=== PATIENT | female | born 1935 | race Caucasian/White ===

== ENCOUNTER → 2017-09-29 09:44 | Outpatient (CLI) | payer MEDICARE, OTHER, SELFPAY ==
[2017-09-29 10:26] LABS: Carbon Dioxide 30 mmol/L (22-32); Chloride 100 mmol/L (98-107); HEMOLYSIS < 15 (0-50); Sodium 140 mmol/L (137-145)
== END ==
PROVIDERS: PCP Family Medicine; Visit Provider Specialist
DX: R89.2 Abnormal level of other drugs, medicaments and biological substances in specimens from other organs, systems and tissues (principal)
CPT/HCPCS: 36415; 80051

== ENCOUNTER → 2017-10-07 10:47 | Outpatient (CLI) | payer MEDICARE, OTHER, SELFPAY ==
[2017-10-07 11:55] LABS: Add Manual Diff / Slide Review NO; Basophils Percent Auto 0.8 % (0-2); Eosinophils Percent Auto 1.2 % (2-4); Hematocrit 39.9 % (36-46); Hemoglobin 13.6 g/dL (12.0-16.0); Lymphocytes Percent Auto 24.3 % (25-40); Mean Corpuscular Hemoglobin 29.1 PG (26-34); Mean Corpuscular Volume 85.8 fL (80-100); Monocytes Percent Auto 7.8 % (3-14); Neutrophils Absolute Auto 4100 /uL (3000-5900); Neutrophils Percent Auto 65.9 % (50-75); Platelet Count 343 X10^3/uL (150-400); Red Blood Cell Count 4.66 X10^6/uL (4.0-5.2); Red Cell Distribution Width 14.3 % (11.6-14.8); White Blood Cell Count 6.3 X10^3/uL (4.5-11.0)
[2017-10-07 12:35] LABS: Alanine Aminotransferase 31 IU/L (9-52); Albumin 4.6 g/dL (3.5-5.0); Albumin Globulin Ratio 1.5 (1.0-2.8); Alkaline Phosphatase 109 U/L (38-126); Aspartate Aminotransferase 30 IU/L (14-36); Bilirubin Total 0.6 mg/dL (0.2-1.3); Blood Urea Nitrogen 22 mg/dL (7-17); Calcium 10.1 mg/dL (8.4-10.2); Carbon Dioxide 33 mmol/L (22-32); Chloride 98 mmol/L (98-107); Cholesterol 225 mg/dL (140-199); Estimated Glomerular Filt Rate 53.5 mL/min (>60); Globulin 3.1 g/dL (1.7-4.1); Glucose 95 mg/dL (80-110); HDL Cholesterol 44 mg/dL (40-60); HEMOLYSIS < 15 (0-50); LDL Cholesterol Calculated 148 mg/dL (<100); Potassium 4.4 mmol/L (3.4-5.1); Sodium 141 mmol/L (137-145); Total Protein 7.7 g/dL (6.3-8.2); Triglycerides 166 mg/dL (35-150)
[2017-10-07 12:39] LABS: Free T4, Direct Thyroxine 1.36 ng/dL (0.78-2.19)
== END ==
PROVIDERS: Family Provider Family Medicine; PCP Family Medicine; Visit Provider Family Medicine
DX: I10 Essential (primary) hypertension (principal); E03.9 Hypothyroidism, unspecified; E78.5 Hyperlipidemia, unspecified
CPT/HCPCS: 36415; 80053; 80061; 84439; 84443; 85025

== ENCOUNTER 2018-05-25 14:03 | Emergency (ER) | payer MEDICARE, OTHER, SELFPAY ==
[2018-05-25 14:10] VITALS: BP 165/73; PULSE 81; RESP 13; TEMP 36.6; O2SAT 98; BMI 35.8
--- NOTE | 2018-05-25 14:17 | DI.RAD.S_ITS ---
PROCEDURE: XR CHEST 1V INDICATIONS: chest pain TECHNIQUE: One view of the chest was acquired. COMPARISON: None. FINDINGS: Surgical changes and devices: None. Lungs and pleura: Lungs are clear. No pleural effusions or pneumothorax. Mediastinum: Mediastinal contours appear normal. Heart size is normal. Bones and chest wall: No suspicious bony lesions. Overlying soft tissues appear unremarkable. IMPRESSION: No acute process. Dictated by: Diana Barraza M.D. on 05/25/2018 at 14:42 Approved by: Diana Barraza M.D. on 05/25/2018 at 14:43
[2018-05-25 14:35] VITALS: BP 146/66; PULSE 79; RESP 13; O2SAT 95
--- NOTE | 2018-05-25 14:41 | ED.CHESTPAIN ---
HPI - Chest Pain <NICOLA Davies - Last Filed: 05/25/18 21:43> General Chief Complaint: Chest Pain Stated Complaint: Abnormal EKG, sent by walk in Time Seen by Provider: 05/25/18 14:15 Source: patient Mode of arrival: ambulatory Limitations: no limitations History of Present Illness HPI narrative: 83-year-old female with history of hypertension that is a nonsmoker here for complaint of having left flank pain over the past several days. She reports she has issue of having flank pain on and off over the past couple of years. She reports that she has been seen for this multiple times and had multiple imaging that has been negative. She says normally treated with muscle relaxers and Idyllwild. She was trying to get prescription of Idyllwild at the walk-in clinic. EKG was completed at the walk-in clinic that showed questionable findings with possible ST depression and T-wave inversions no prior EKG was available she to evaluate. She denies any chest pain. No shortness of breath. No nausea vomiting. She denies having any history of any cardiac history. She denies any trauma to the flank area. No urinary symptoms. She is ambulatory in the emergency room. No loss of bladder or bowel control. Related Data Home Medications Medication Instructions Recorded Confirmed hydrocodone 5 mg-acetaminophen 300 0.5 - 1 tab PO Q6H PRN 09/29/17 05/25/18 mg tablet Fish Oil 1 cap PO DAILY 05/25/18 05/25/18 amitriptyline 25 mg PO BEDTIME 05/25/18 05/25/18 ascorbic acid (vitamin C) 1,000 mg PO DAILY 05/25/18 05/25/18 [id number] 1 tab PO PRN PRN 05/25/18 05/25/18 [Excedrin Migraine] cyclobenzaprine 2.5 - 10 mg PO PRN PRN 05/25/18 05/25/18 ferrous sulfate [iron] 65 mg PO 2XW 05/25/18 05/25/18 levothyroxine 88 mcg PO DAILY 05/25/18 05/25/18 pantoprazole 20 mg PO DAILY 05/25/18 05/25/18 Previous Rx's Medication Instructions Recorded triamterene 37.5 1 cap PO DAILY #90 cap 09/29/17 mg-hydrochlorothiazide 25 mg capsule calcium carbonate 200 mg calcium 200 mg PO BID #180 tab 10/07/17 (500 mg) chewable tablet cholecalciferol (vitamin D3) 2,000 2,000 unit PO DAILY #90 cap 10/07/17 unit capsule verapamil ER 240 mg 24 hr 240 mg PO BID #180 cap 05/22/18 capsule,extended release hydrocodone-acetaminophen [Idyllwild] 1 tab PO Q6H PRN #10 tab 05/25/18 Allergies Allergy/AdvReac Type Severity Reaction Status Date / Time zonisamide [ZONISAMIDE] Allergy Unknown rash Verified 05/25/18 14:13 Review of Systems <NICOLA Davies - Last Filed: 05/25/18 21:43> Constitutional Denies chills, Denies fever(s), Denies lethargy and Denies weakness ENT Ears, Nose, Mouth, and Throat: Denies change in voice, Denies neck pain and Denies sore throat Cardiovascular Denies chest pain, Denies irregular heart rhythm, Denies lightheadedness, Denies palpitations, Denies dyspnea, Denies dyspnea on exertion and Denies orthopnea Respiratory Denies cough, Denies dyspnea, Denies dyspnea on exertion and Denies wheezing Gastrointestinal Gastrointestinal: Denies abdominal pain, Denies change in bowel habits, Denies diarrhea, Denies nausea and Denies vomiting Genitourinary Denies hematuria, Denies flank pain, Denies urinary incontinence and Denies urinary urgency Musculoskeletal Denies neck pain Comments: Left back/left flank area. Integumentary/Breasts Denies pruritus, Denies erythema, Denies rash and Denies wounds Neurologic Denies confusion and Denies weakness Psychiatric Denies anxiety, Denies confusion, Denies depression, Denies homicidal ideation and Denies suicidal ideation Endocrine Denies palpitations Hematologic/Lymphatic Denies easy bruising Allergic/Immunologic Denies wheezing PFSH <NICOLA Davies - Last Filed: 05/25/18 21:43> Medical History GERD (gastroesophageal reflux disease) (Chronic) Lower extremity edema (Chronic) Migraines (Chronic) Hypothyroidism (acquired) (Chronic) Essential hypertension (Chronic ~2007) Rheumatoid arthritis (Acute ~1997) Cataracts, bilateral (Chronic 2015) Chronic back pain (Chronic 2002) Hearing loss (Chronic 2015) Lumbar disc disease (Chronic 2002) Stress incontinence of urine (Chronic 2017) Vertigo (Chronic 2012) Anemia (Resolved) Foot pain (Resolved) Rheumatic fever (Resolved) Surgical History S/P hysterectomy (Chronic 1987) S/P appendectomy (Chronic 1966) Family History Father Heart disease Stroke Mother Cancer Brother Cancer Sister Alzheimer's disease Sister No problems noted. Social History Smoking Status: Never smoker alcohol intake: never Social History Smoking Status: Never smoker alcohol intake: never Exam <NICOLA Davies - Last Filed: 05/25/18 21:43> Initial Vital Signs Initial Vital Signs: Vital Signs Temperature 97.9 F 05/25/18 14:10 Pulse Rate 81 05/25/18 14:10 Respiratory Rate 13 05/25/18 14:10 Blood Pressure 165/73 H 05/25/18 14:10 Pulse Oximetry 98 05/25/18 14:10 Const General: cooperative and well developed Nutritional Appearance: well nourished Orientation: alert, awake, oriented x3 and not confused [facility] Mouth: oral mucosae normal and moist mucous membranes Eyes Conjunctivae: conjunctivae normal Sclera: sclerae normal Pupils: PERRL EOM: EOM intact bilaterally Resp Effort & Inspection: normal respiratory effort, able to speak in complete sentences, no respiratory distress and no use of accessory muscles Auscultation: clear to auscultation bilaterally, no rales, no rhonchi and no wheezes Cardio Rate: regular rate Rhythm: regular rhythm Heart Sounds: no click, no gallops, no murmurs and no rubs Pulses: normal peripheral pulses GI Inspection: non-distended Palpation: soft, no hepatosplenomegaly, No guarding, No pulsatile mass and No tender Auscultation: normal bowel sounds General: No CVA tenderness Back/Spine/Pelvis Other: Tenderness to the left flank area and to left thoracic paraspinals on palpation. No CVA tenderness. Skin General: no rashes or lesions noted, No jaundice and No petechiae Neuro General: alert, oriented x3, gait normal and no focal motor deficits Speech: speech normal <Aravind Andrew DO - Last Filed: 05/26/18 20:21> Initial Vital Signs Initial Vital Signs: Vital Signs Temperature 97.9 F 05/25/18 14:10 Pulse Rate 81 05/25/18 14:10 Respiratory Rate 13 05/25/18 14:10 Blood Pressure 165/73 H 05/25/18 14:10 Pulse Oximetry 98 05/25/18 14:10 Course <NICOLA Davies - Last Filed: 05/25/18 21:43> Orders Ordered: Discontinued Medications Sodium Chloride (Normal Saline 0.9%) 1,000 mls @ 150 mls/hr IV CONT LEONIDES Last Infusion: 05/25/18 16:38 Dose: 150 mls/hr Admin: 05/25/18 15:00 Dose: 150 mls/hr Vital Signs - 8 hr 05/25/18 14:10 05/25/18 14:35 05/25/18 16:23 Temperature 97.9 F Pulse Rate 81 79 80 Respiratory Rate 13 13 21 Blood Pressure 165/73 H Blood Pressure [Left Arm] 146/66 H 129/86 Pulse Oximetry 98 95 95 <Aravind Andrew DO - Last Filed: 05/26/18 20:21> Orders Ordered: Discontinued Medications Sodium Chloride (Normal Saline 0.9%) 1,000 mls @ 150 mls/hr IV CONT LEONIDES Last Infusion: 05/25/18 16:38 Dose: 150 mls/hr Admin: 05/25/18 15:00 Dose: 150 mls/hr Vital Signs - 8 hr 05/25/18 14:10 05/25/18 14:35 05/25/18 16:23 Temperature 97.9 F Pulse Rate 81 79 80 Respiratory Rate 13 13 21 Blood Pressure 165/73 H Blood Pressure [Left Arm] 146/66 H 129/86 Pulse Oximetry 98 95 95 MDM - Chest Pain <NICOLA Davies - Last Filed: 05/25/18 21:43> Lab Data Result diagrams: 05/25/18 14:41 05/25/18 14:41 Lab Results 05/25/18 05/25/18 05/25/18 Range/Units 14:41 14:41 14:41 WBC 7.3 (4.5-11.0) X10^3/uL RBC 4.79 (4.0-5.2) X10^6/uL Hgb 13.7 (12.0-16.0) g/dL Hct 41.6 (36-46) % MCV 86.8 (80-100) fL MCH 28.7 (26-34) PG MCHC 33.0 (30-36) % RDW 14.0 (11.6-14.8) % Plt Count 307 (150-400) X10^3/uL Neut % (Auto) 65.0 (50-75) % Lymph % (Auto) 25.1 (25-40) % Morrill % (Auto) 7.5 (3-14) % Eos % (Auto) 1.3 L (2-4) % Baso % (Auto) 1.1 (0-2) % Neut # (Auto) 4800 (8591-4021) /uL Lymph # (Auto) 1800 (0761-7088) /uL Morrill # (Auto) 500 (0-900) /uL Eos # (Auto) 100 (0-450) /uL Baso # (Auto) 100 (0-100) /uL PT 11.2 (10.1-12.7) SECONDS INR 1.0 (0.9-1.3) APTT 33 (26.4-36.2) SECONDS Sodium 139 (137-145) mmol/L Potassium 3.6 (3.4-5.1) mmol/L Chloride 100 (98-107) mmol/L Carbon Dioxide 27 (22-32) mmol/L BUN 26 H (7-17) mg/dL Creatinine 0.90 (0.52-1.04) mg/dL Estimated GFR > 60.0 (>60) mL/min BUN/Creatinine Ratio 28.9 H (6-22) Glucose 88 (80-110) mg/dL Calcium 10.0 (8.4-10.2) mg/dL Total Bilirubin 0.4 (0.2-1.3) mg/dL AST 33 (14-36) IU/L ALT 37 (9-52) IU/L Alkaline Phosphatase 95 (38-126) U/L Total Creatine Kinase 82 (30-135) U/L CK-MB (CK-2) TNP CK-MB (CK-2) Rel Index TNP Troponin I < 0.012 (0.01-0.034) ng/mL Total Protein 8.0 (6.3-8.2) g/dL Albumin 4.8 (3.5-5.0) g/dL Globulin 3.2 (1.7-4.1) g/dL Albumin/Globulin Ratio 1.5 (1.0-2.8) Lipase 86 (23-300) U/L Urine Dip Bedside Urine Glucose Negative Bedside Urine Bilirubin - Negative Bedside Urine Ketone - Negative Urine Specific [place] 1.015 Bedside Urine Occult Blood - Negative Bedside Urine pH 6.0 Bedside Urine Protein - Negative Bedside Urine Urobilinogen - Negative Bedside Urine Nitrite - Negative Bedside Urine Leukocytes - Negative Esterase ECG Data Interpretation: EKG shows normal sinus rhythm with no ST elevation or depression. No ectopy. Ventricular rate of 80 pr interval of 174. QRS duration 97. QTC of 446. MDM Narrative Medical decision making narrative: CBC was obtained and was unremarkable. INR was normal. Chem panel was obtained was unremarkable. Cardiac enzymes were obtained and were negative. EKG shows sinus rhythm with no ST elevation or depression is appreciated. Urinalysis was negative for urinary tract infection or blood. Signs and symptoms presents exacerbate mason of muscle skeletal pain to the back/flank area. She has muscle relaxer at home will have her continue to use that. Small amount of Idyllwild is prescribed for breakthrough pain. She was warned not to use cyclobenzaprine with Idyllwild at the same timeframe. Follow up with primary care provider. Return emergency room for worsening symptoms. <Aravind Andrew, - Last Filed: 05/26/18 20:21> Lab Data Lab Results 05/25/18 05/25/18 05/25/18 Range/Units 14:41 14:41 14:41 WBC 7.3 (4.5-11.0) X10^3/uL RBC 4.79 (4.0-5.2) X10^6/uL Hgb 13.7 (12.0-16.0) g/dL Hct 41.6 (36-46) % MCV 86.8 (80-100) fL MCH 28.7 (26-34) PG MCHC 33.0 (30-36) % RDW 14.0 (11.6-14.8) % Plt Count 307 (150-400) X10^3/uL Neut % (Auto) 65.0 (50-75) % Lymph % (Auto) 25.1 (25-40) % Morrill % (Auto) 7.5 (3-14) % Eos % (Auto) 1.3 L (2-4) % Baso % (Auto) 1.1 (0-2) % Neut # (Auto) 4800 (1228-0982) /uL Lymph # (Auto) 1800 (3579-4229) /uL Morrill # (Auto) 500 (0-900) /uL Eos # (Auto) 100 (0-450) /uL Baso # (Auto) 100 (0-100) /uL PT 11.2 (10.1-12.7) SECONDS INR 1.0 (0.9-1.3) APTT 33 (26.4-36.2) SECONDS Sodium 139 (137-145) mmol/L Potassium 3.6 (3.4-5.1) mmol/L Chloride 100 (98-107) mmol/L Carbon Dioxide 27 (22-32) mmol/L BUN 26 H (7-17) mg/dL Creatinine 0.90 (0.52-1.04) mg/dL Estimated GFR > 60.0 (>60) mL/min BUN/Creatinine Ratio 28.9 H (6-22) Glucose 88 (80-110) mg/dL Calcium 10.0 (8.4-10.2) mg/dL Total Bilirubin 0.4 (0.2-1.3) mg/dL AST 33 (14-36) IU/L ALT 37 (9-52) IU/L Alkaline Phosphatase 95 (38-126) U/L Total Creatine Kinase 82 (30-135) U/L CK-MB (CK-2) TNP CK-MB (CK-2) Rel Index TNP Troponin I < 0.012 (0.01-0.034) ng/mL Total Protein 8.0 (6.3-8.2) g/dL Albumin 4.8 (3.5-5.0) g/dL Globulin 3.2 (1.7-4.1) g/dL Albumin/Globulin Ratio 1.5 (1.0-2.8) Lipase 86 (23-300) U/L Urine Dip Bedside Urine Glucose Negative Bedside Urine Bilirubin - Negative Bedside Urine Ketone - Negative Urine Specific [place] 1.015 Bedside Urine Occult Blood - Negative Bedside Urine pH 6.0 Bedside Urine Protein - Negative Bedside Urine Urobilinogen - Negative Bedside Urine Nitrite - Negative Bedside Urine Leukocytes - Negative Esterase Discharge Plan Departure Patient Disposition: Home Clinical Impression: Left flank pain Discharge Date/Time: 05/25/18 16:41 Interventions: ED Discharge Assessment Last Done: 05/25/18 16:39 Instructions: DI for Thoracic Back Pain Activity Restrictions/Additional Instructions: Laboratory results EKG and chest x-ray today were unremarkable. Signs and symptoms is exacerbation of chronic flank pain. Rest area. Use [id number] Tylenol or Motrin as needed for any discomfort. May use her muscle relaxer to help with any muscle tension and spasm. Small amount of [place]yllwild is prescribed for breakthrough pain. Do not use in conjunction with the muscle relaxer. For any worsening symptoms return to the emergency room. Prescriptions: New hydrocodone-acetaminophen [Idyllwild] 5-325 mg tablet 1 tab PO Q6H PRN (Reason: pain) Qty: 10 RF: 0 No Action calcium carbonate [Tums] 200 mg calcium (500 mg) tablet,chewable 200 mg PO BID Qty: 180 RF: 3 cholecalciferol (vitamin D3) 2,000 unit capsule 2,000 unit PO DAILY Qty: 90 RF: 3 verapamil 240 mg capsule,ext rel. pellets 24 hr 240 mg PO BID Qty: 180 RF: 3 pantoprazole 20 mg tablet,delayed release (DR/EC) 20 mg PO DAILY RF: 0 levothyroxine 88 mcg tablet 88 mcg PO DAILY RF: 0 ascorbic acid (vitamin C) 1,000 mg Tablet 1,000 mg PO DAILY RF: 0 ferrous sulfate [iron] 325 mg (65 mg iron) Tablet 65 mg PO 2XW RF: 0 Excedrin Migraine 250-250-65 mg Tablet 1 tab PO PRN PRN (Reason: headaches or arthritis) RF: 0 Fish Oil 1,200 mg 1 cap PO DAILY RF: 0 cyclobenzaprine 10 mg tablet 2.5 - 10 mg PO PRN PRN (Reason: back spasm) RF: 0 amitriptyline 25 mg tablet 25 mg PO BEDTIME RF: 0 hydrocodone-acetaminophen 5-300 mg tablet 0.5 - 1 tab PO Q6H PRN (Reason: back spasm) RF: 0 triamterene-hydrochlorothiazid [Dyazide] 37.5-25 mg capsule 1 cap PO DAILY Qty: 90 RF: 3 Referrals: Jasper See MD [Primary Care Provider] - <Aravind Andrew DO - Last Filed: 05/26/18 20:21> Cosign ED Attending Martin Attestation: I was available for consultation during this patient's emergency department encounter
--- NOTE | 2018-05-25 14:48 | ED_ITS ---
HPI - Chest Pain <NICOLA Davies - Last Filed: 05/25/18 21:43> General Chief Complaint: Chest Pain Stated Complaint: Abnormal EKG, sent by walk in Time Seen by Provider: 05/25/18 14:15 Source: patient Mode of arrival: ambulatory Limitations: no limitations History of Present Illness HPI narrative: 83-year-old female with history of hypertension that is a nonsmoker here for complaint of having left flank pain over the past several days. She reports she has issue of having flank pain on and off over the past couple of years. She reports that she has been seen for this multiple times and had multiple imaging that has been negative. She says normally treated with muscle relaxers and [place]. She was trying to get prescription of [place] at the walk-in clinic. EKG was completed at the walk-in clinic that showed questionable findings with possible ST depression and T-wave inversions no prior EKG was available she to evaluate. She denies any chest pain. No shortness of breath. No nausea vomiting. She denies having any history of any cardiac history. She denies any trauma to the flank area. No urinary symptoms. She is ambulatory in the emergency room. No loss of bladder or bowel control. Related Data Home Medications Medication Instructions Recorded Confirmed hydrocodone 5 mg-acetaminophen 300 0.5 - 1 tab PO Q6H PRN 09/29/17 05/25/18 mg tablet Fish Oil 1 cap PO DAILY 05/25/18 05/25/18 amitriptyline 25 mg PO BEDTIME 05/25/18 05/25/18 ascorbic acid (vitamin C) 1,000 mg PO DAILY 05/25/18 05/25/18 [id number] 1 tab PO PRN PRN 05/25/18 05/25/18 [Excedrin Migraine] cyclobenzaprine 2.5 - 10 mg PO PRN PRN 05/25/18 05/25/18 ferrous sulfate [iron] 65 mg PO 2XW 05/25/18 05/25/18 levothyroxine 88 mcg PO DAILY 05/25/18 05/25/18 pantoprazole 20 mg PO DAILY 05/25/18 05/25/18 Previous Rx's Medication Instructions Recorded triamterene 37.5 1 cap PO DAILY #90 cap 09/29/17 mg-hydrochlorothiazide 25 mg capsule calcium carbonate 200 mg calcium 200 mg PO BID #180 tab 10/07/17 (500 mg) chewable tablet cholecalciferol (vitamin D3) 2,000 2,000 unit PO DAILY #90 cap 10/07/17 unit capsule verapamil ER 240 mg 24 hr 240 mg PO BID #180 cap 05/22/18 capsule,extended release hydrocodone-acetaminophen [[place]] 1 tab PO Q6H PRN #10 tab 05/25/18 Allergies Allergy/AdvReac Type Severity Reaction Status Date / Time zonisamide [ZONISAMIDE] Allergy Unknown rash Verified 05/25/18 14:13 Review of Systems <NICOLA Davies - Last Filed: 05/25/18 21:43> Constitutional Denies chills, Denies fever(s), Denies lethargy and Denies weakness ENT Ears, Nose, Mouth, and Throat: Denies change in voice, Denies neck pain and Denies sore throat Cardiovascular Denies chest pain, Denies irregular heart rhythm, Denies lightheadedness, Denies palpitations, Denies dyspnea, Denies dyspnea on exertion and Denies orthopnea Respiratory Denies cough, Denies dyspnea, Denies dyspnea on exertion and Denies wheezing Gastrointestinal Gastrointestinal: Denies abdominal pain, Denies change in bowel habits, Denies diarrhea, Denies nausea and Denies vomiting Genitourinary Denies hematuria, Denies flank pain, Denies urinary incontinence and Denies urinary urgency Musculoskeletal Denies neck pain Comments: Left back/left flank area. Integumentary/Breasts Denies pruritus, Denies erythema, Denies rash and Denies wounds Neurologic Denies confusion and Denies weakness Psychiatric Denies anxiety, Denies confusion, Denies depression, Denies homicidal ideation and Denies suicidal ideation Endocrine Denies palpitations Hematologic/Lymphatic Denies easy bruising Allergic/Immunologic Denies wheezing PFSH <NICOLA Davies - Last Filed: 05/25/18 21:43> Medical History GERD (gastroesophageal reflux disease) (Chronic) Lower extremity edema (Chronic) Migraines (Chronic) Hypothyroidism (acquired) (Chronic) Essential hypertension (Chronic ~2007) Rheumatoid arthritis (Acute ~1997) Cataracts, bilateral (Chronic 2015) Chronic back pain (Chronic 2002) Hearing loss (Chronic 2015) Lumbar disc disease (Chronic 2002) Stress incontinence of urine (Chronic 2017) Vertigo (Chronic 2012) Anemia (Resolved) Foot pain (Resolved) Rheumatic fever (Resolved) Surgical History S/P hysterectomy (Chronic 1987) S/P appendectomy (Chronic 1966) Family History Father Heart disease Stroke Mother Cancer Brother Cancer Sister Alzheimer's disease Sister No problems noted. Social History Smoking Status: Never smoker alcohol intake: never Social History Smoking Status: Never smoker alcohol intake: never Exam <NICOLA Davies - Last Filed: 05/25/18 21:43> Initial Vital Signs Initial Vital Signs: Vital Signs Temperature 97.9 F 05/25/18 14:10 Pulse Rate 81 05/25/18 14:10 Respiratory Rate 13 05/25/18 14:10 Blood Pressure 165/73 H 05/25/18 14:10 Pulse Oximetry 98 05/25/18 14:10 Const General: cooperative and well developed Nutritional Appearance: well nourished Orientation: alert, awake, oriented x3 and not confused [facility] Mouth: oral mucosae normal and moist mucous membranes Eyes Conjunctivae: conjunctivae normal Sclera: sclerae normal Pupils: PERRL EOM: EOM intact bilaterally Resp Effort & Inspection: normal respiratory effort, able to speak in complete sentences, no respiratory distress and no use of accessory muscles Auscultation: clear to auscultation bilaterally, no rales, no rhonchi and no wheezes Cardio Rate: regular rate Rhythm: regular rhythm Heart Sounds: no click, no gallops, no murmurs and no rubs Pulses: normal peripheral pulses GI Inspection: non-distended Palpation: soft, no hepatosplenomegaly, No guarding, No pulsatile mass and No tender Auscultation: normal bowel sounds General: No CVA tenderness Back/Spine/Pelvis Other: Tenderness to the left flank area and to left thoracic paraspinals on palpation. No CVA tenderness. Skin General: no rashes or lesions noted, No jaundice and No petechiae Neuro General: alert, oriented x3, gait normal and no focal motor deficits Speech: speech normal <Aravind Andrew DO - Last Filed: 05/26/18 20:21> Initial Vital Signs Initial Vital Signs: Vital Signs Temperature 97.9 F 05/25/18 14:10 Pulse Rate 81 05/25/18 14:10 Respiratory Rate 13 05/25/18 14:10 Blood Pressure 165/73 H 05/25/18 14:10 Pulse Oximetry 98 05/25/18 14:10 Course <NICOLA Davies - Last Filed: 05/25/18 21:43> Orders Ordered: Discontinued Medications Sodium Chloride (Normal Saline 0.9%) 1,000 mls @ 150 mls/hr IV CONT LEONIDES Last Infusion: 05/25/18 16:38 Dose: 150 mls/hr Admin: 05/25/18 15:00 Dose: 150 mls/hr Vital Signs - 8 hr 05/25/18 14:10 05/25/18 14:35 05/25/18 16:23 Temperature 97.9 F Pulse Rate 81 79 80 Respiratory Rate 13 13 21 Blood Pressure 165/73 H Blood Pressure [Left Arm] 146/66 H 129/86 Pulse Oximetry 98 95 95 <Aravind Andrew DO - Last Filed: 05/26/18 20:21> Orders Ordered: Discontinued Medications Sodium Chloride (Normal Saline 0.9%) 1,000 mls @ 150 mls/hr IV CONT LEONIDES Last Infusion: 05/25/18 16:38 Dose: 150 mls/hr Admin: 05/25/18 15:00 Dose: 150 mls/hr Vital Signs - 8 hr 05/25/18 14:10 05/25/18 14:35 05/25/18 16:23 Temperature 97.9 F Pulse Rate 81 79 80 Respiratory Rate 13 13 21 Blood Pressure 165/73 H Blood Pressure [Left Arm] 146/66 H 129/86 Pulse Oximetry 98 95 95 MDM - Chest Pain <NICOLA Davies - Last Filed: 05/25/18 21:43> Lab Data Result diagrams: 05/25/18 14:41 05/25/18 14:41 Lab Results 05/25/18 05/25/18 05/25/18 Range/Units 14:41 14:41 14:41 WBC 7.3 (4.5-11.0) X10^3/uL RBC 4.79 (4.0-5.2) X10^6/uL Hgb 13.7 (12.0-16.0) g/dL Hct 41.6 (36-46) % MCV 86.8 (80-100) fL MCH 28.7 (26-34) PG MCHC 33.0 (30-36) % RDW 14.0 (11.6-14.8) % Plt Count 307 (150-400) X10^3/uL Neut % (Auto) 65.0 (50-75) % Lymph % (Auto) 25.1 (25-40) % [place] % (Auto) 7.5 (3-14) % Eos % (Auto) 1.3 L (2-4) % Baso % (Auto) 1.1 (0-2) % Neut # (Auto) 4800 (9325-7691) /uL Lymph # (Auto) 1800 (2665-6228) /uL [place] # (Auto) 500 (0-900) /uL Eos # (Auto) 100 (0-450) /uL Baso # (Auto) 100 (0-100) /uL PT 11.2 (10.1-12.7) SECONDS INR 1.0 (0.9-1.3) APTT 33 (26.4-36.2) SECONDS Sodium 139 (137-145) mmol/L Potassium 3.6 (3.4-5.1) mmol/L Chloride 100 (98-107) mmol/L Carbon Dioxide 27 (22-32) mmol/L BUN 26 H (7-17) mg/dL Creatinine 0.90 (0.52-1.04) mg/dL Estimated GFR > 60.0 (>60) mL/min BUN/Creatinine Ratio 28.9 H (6-22) Glucose 88 (80-110) mg/dL Calcium 10.0 (8.4-10.2) mg/dL Total Bilirubin 0.4 (0.2-1.3) mg/dL AST 33 (14-36) IU/L ALT 37 (9-52) IU/L Alkaline Phosphatase 95 (38-126) U/L Total Creatine Kinase 82 (30-135) U/L CK-MB (CK-2) TNP CK-MB (CK-2) Rel Index TNP Troponin I < 0.012 (0.01-0.034) ng/mL Total Protein 8.0 (6.3-8.2) g/dL Albumin 4.8 (3.5-5.0) g/dL Globulin 3.2 (1.7-4.1) g/dL Albumin/Globulin Ratio 1.5 (1.0-2.8) Lipase 86 (23-300) U/L Urine Dip Bedside Urine Glucose Negative Bedside Urine Bilirubin - Negative Bedside Urine Ketone - Negative Urine Specific [place] 1.015 Bedside Urine Occult Blood - Negative Bedside Urine pH 6.0 Bedside Urine Protein - Negative Bedside Urine Urobilinogen - Negative Bedside Urine Nitrite - Negative Bedside Urine Leukocytes - Negative Esterase ECG Data Interpretation: EKG shows normal sinus rhythm with no ST elevation or depression. No ectopy. Ventricular rate of 80 pr interval of 174. QRS duration 97. QTC of 446. MDM Narrative Medical decision making narrative: CBC was obtained and was unremarkable. INR was normal. Chem panel was obtained was unremarkable. Cardiac enzymes were obtained and were negative. EKG shows sinus rhythm with no ST elevation or depression is appreciated. Urinalysis was negative for urinary tract infection or blood. Signs and symptoms presents exacerbate mason of muscle skeletal pain to the back/flank area. She has muscle relaxer at home will have her continue to use that. Small amount of [place] is prescribed for breakthrough pain. She was warned not to use cyclobenzaprine with [place] at the same timeframe. Follow up with primary care provider. Return emergency room for worsening symptoms. <Aravind Andrew, - Last Filed: 05/26/18 20:21> Lab Data Lab Results 05/25/18 05/25/18 05/25/18 Range/Units 14:41 14:41 14:41 WBC 7.3 (4.5-11.0) X10^3/uL RBC 4.79 (4.0-5.2) X10^6/uL Hgb 13.7 (12.0-16.0) g/dL Hct 41.6 (36-46) % MCV 86.8 (80-100) fL MCH 28.7 (26-34) PG MCHC 33.0 (30-36) % RDW 14.0 (11.6-14.8) % Plt Count 307 (150-400) X10^3/uL Neut % (Auto) 65.0 (50-75) % Lymph % (Auto) 25.1 (25-40) % [place] % (Auto) 7.5 (3-14) % Eos % (Auto) 1.3 L (2-4) % Baso % (Auto) 1.1 (0-2) % Neut # (Auto) 4800 (7248-4785) /uL Lymph # (Auto) 1800 (0129-0984) /uL [place] # (Auto) 500 (0-900) /uL Eos # (Auto) 100 (0-450) /uL Baso # (Auto) 100 (0-100) /uL PT 11.2 (10.1-12.7) SECONDS INR 1.0 (0.9-1.3) APTT 33 (26.4-36.2) SECONDS Sodium 139 (137-145) mmol/L Potassium 3.6 (3.4-5.1) mmol/L Chloride 100 (98-107) mmol/L Carbon Dioxide 27 (22-32) mmol/L BUN 26 H (7-17) mg/dL Creatinine 0.90 (0.52-1.04) mg/dL Estimated GFR > 60.0 (>60) mL/min BUN/Creatinine Ratio 28.9 H (6-22) Glucose 88 (80-110) mg/dL Calcium 10.0 (8.4-10.2) mg/dL Total Bilirubin 0.4 (0.2-1.3) mg/dL AST 33 (14-36) IU/L ALT 37 (9-52) IU/L Alkaline Phosphatase 95 (38-126) U/L Total Creatine Kinase 82 (30-135) U/L CK-MB (CK-2) TNP CK-MB (CK-2) Rel Index TNP Troponin I < 0.012 (0.01-0.034) ng/mL Total Protein 8.0 (6.3-8.2) g/dL Albumin 4.8 (3.5-5.0) g/dL Globulin 3.2 (1.7-4.1) g/dL Albumin/Globulin Ratio 1.5 (1.0-2.8) Lipase 86 (23-300) U/L Urine Dip Bedside Urine Glucose Negative Bedside Urine Bilirubin - Negative Bedside Urine Ketone - Negative Urine Specific [place] 1.015 Bedside Urine Occult Blood - Negative Bedside Urine pH 6.0 Bedside Urine Protein - Negative Bedside Urine Urobilinogen - Negative Bedside Urine Nitrite - Negative Bedside Urine Leukocytes - Negative Esterase Discharge Plan Departure Patient Disposition: Home Clinical Impression: Left flank pain Discharge Date/Time: 05/25/18 16:41 Interventions: ED Discharge Assessment Last Done: 05/25/18 16:39 Instructions: DI for Thoracic Back Pain Activity Restrictions/Additional Instructions: Laboratory results EKG and chest x-ray today were unremarkable. Signs and symptoms is exacerbation of chronic flank pain. Rest area. Use [id number] Tylenol or Motrin as needed for any discomfort. May use her muscle relaxer to help with any muscle tension and spasm. Small amount of [place] is prescribed for breakthrough pain. Do not use in conjunction with the muscle relaxer. For any worsening symptoms return to the emergency room. Prescriptions: New hydrocodone-acetaminophen [[place]] 5-325 mg tablet 1 tab PO Q6H PRN (Reason: pain) Qty: 10 RF: 0 No Action calcium carbonate [Tums] 200 mg calcium (500 mg) tablet,chewable 200 mg PO BID Qty: 180 RF: 3 cholecalciferol (vitamin D3) 2,000 unit capsule 2,000 unit PO DAILY Qty: 90 RF: 3 verapamil 240 mg capsule,ext rel. pellets 24 hr 240 mg PO BID Qty: 180 RF: 3 pantoprazole 20 mg tablet,delayed release (DR/EC) 20 mg PO DAILY RF: 0 levothyroxine 88 mcg tablet 88 mcg PO DAILY RF: 0 ascorbic acid (vitamin C) 1,000 mg Tablet 1,000 mg PO DAILY RF: 0 ferrous sulfate [iron] 325 mg (65 mg iron) Tablet 65 mg PO 2XW RF: 0 Excedrin Migraine 250-250-65 mg Tablet 1 tab PO PRN PRN (Reason: headaches or arthritis) RF: 0 Fish Oil 1,200 mg 1 cap PO DAILY RF: 0 cyclobenzaprine 10 mg tablet 2.5 - 10 mg PO PRN PRN (Reason: back spasm) RF: 0 amitriptyline 25 mg tablet 25 mg PO BEDTIME RF: 0 hydrocodone-acetaminophen 5-300 mg tablet 0.5 - 1 tab PO Q6H PRN (Reason: back spasm) RF: 0 triamterene-hydrochlorothiazid [Dyazide] 37.5-25 mg capsule 1 cap PO DAILY Qty: 90 RF: 3 Referrals: Jasper See MD [Primary Care Provider] - <Aravind Andrew DO - Last Filed: 05/26/18 20:21> Cosign ED Attending Martin Attestation: I was available for consultation during this patient's emergency department encounter
[2018-05-25 14:49] LABS: Add Manual Diff / Slide Review NO; Basophils Absolute Auto 100 /uL (0-100); Basophils Percent Auto 1.1 % (0-2); Eosinophils Absolute Auto 100 /uL (0-450); Eosinophils Percent Auto 1.3 % (2-4); Hematocrit 41.6 % (36-46); Hemoglobin 13.7 g/dL (12.0-16.0); Lymphocytes Absolute Auto 1800 /uL (1100-4500); Lymphocytes Percent Auto 25.1 % (25-40); Mean Corpuscular Hemoglobin 28.7 PG (26-34); Mean Corpuscular Volume 86.8 fL (80-100); Monocytes Absolute Auto 500 /uL (0-900); Monocytes Percent Auto 7.5 % (3-14); Neutrophils Absolute Auto 4800 /uL (1500-7000); Platelet Count 307 X10^3/uL (150-400); Red Blood Cell Count 4.79 X10^6/uL (4.0-5.2); White Blood Cell Count 7.3 X10^3/uL (4.5-11.0)
[2018-05-25 14:56] LABS: Prothrombin Time 11.2 SECONDS (10.1-12.7)
[2018-05-25 14:59] LABS: PTT Partial Thromboplastin Tim 33 SECONDS (26.4-36.2)
[2018-05-25 15:00] LABS: Alanine Aminotransferase 37 IU/L (9-52); Albumin 4.8 g/dL (3.5-5.0); Albumin Globulin Ratio 1.5 (1.0-2.8); Alkaline Phosphatase 95 U/L (38-126); Aspartate Aminotransferase 33 IU/L (14-36); BUN Creatinine Ratio 28.9 (6-22); Bilirubin Total 0.4 mg/dL (0.2-1.3); Blood Urea Nitrogen 26 mg/dL (7-17); Carbon Dioxide 27 mmol/L (22-32); Chloride 100 mmol/L (98-107); Creatine Kinase 82 U/L (30-135); Estimated Glomerular Filt Rate > 60.0 mL/min (>60); Globulin 3.2 g/dL (1.7-4.1); Glucose 88 mg/dL (80-110); HEMOLYSIS < 15 (0-50); Lipase 86 U/L (23-300); Potassium 3.6 mmol/L (3.4-5.1); Sodium 139 mmol/L (137-145)
[2018-05-25] MEDS: SODIUM CHLORIDE 0.9% 1,000 ML 150 ML IV (15:00)
[2018-05-25 15:12] LABS: Troponin I < 0.012 ng/mL (0.01-0.034)
[2018-05-25 16:23] VITALS: BP 129/86; PULSE 80; RESP 21; O2SAT 95
== END 2018-05-25 16:41 | disposition home or self-care (01) ==
PROVIDERS: Emergency Provider Nurse Practitioner Family; Family Provider Family Medicine; PCP Family Medicine
DX: R10.9 Unspecified abdominal pain (principal); R94.31 Abnormal electrocardiogram [ECG] [EKG]
CPT/HCPCS: 36591; 71045; 80053; 81003; 82550; 83690; 84484; 85025; 85610; 85730; 93005; 93010; 96360; 96361; 99283; 99285